=== PATIENT | male | born 1980 ===

== ENCOUNTER 2017-12-18 10:39 | Emergency (ER) | payer SELFPAY ==
[2017-12-18 10:50] VITALS: RESP 18; TEMP 98.5
[2017-12-18] MEDS ORDERED: Lidocaine 2% Inj (20ml) INFIL ONE (13:34)
[2017-12-18] MEDS ORDERED: Bacitracin 500 Units/gm Oint Foilpak UD TOP ONE (13:34)
[2017-12-18] MEDS ORDERED: Lidocaine 1% Inj (20ml) ONE (13:37)
[2017-12-18] MEDS ORDERED: Bacitracin 500 Units/gm Oint Foilpak UD ONE (13:49)
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
[2017-12-18 14:41] VITALS: BP 108/70; PULSE 80
[2017-12-18 14:42] VITALS: O2SAT 98
== END 2017-12-18 14:53 | disposition home or self-care (01) ==
LOC: C.ER 10:39
DX: S61.012A Laceration without foreign body of left thumb without damage to nail, initial encounter (principal); W45.8XXA Other foreign body or object entering through skin, initial encounter; Y92.89 Other specified places as the place of occurrence of the external cause; Z23 Encounter for immunization